=== PATIENT | female | born 1965 | race Caucasian/White ===

== ENCOUNTER 2019-09-13 11:26 | Emergency (ER) | payer BC ==
[2019-09-13] MEDS ORDERED: LORazepam 2 MG/ML SDV IM ONE (12:15)
[2019-09-13] MEDS ORDERED: Ketorolac 30 MG/ML SDV IM ONE (12:15)
--- NOTE | 2019-09-13 12:17 | EDM.PDOC ---
ED HPI GENERAL MEDICAL PROBLEM - General Chief Complaint: Chest Pain Stated Complaint: CHEAT PAINS Time Seen by Provider: 09/13/19 12:08 Source of Information: Reports: Patient, RN Notes Reviewed History Limitations: Reports: No Limitations - History of Present Illness INITIAL COMMENTS - FREE TEXT/NARRATIVE: 54-year-old female presents emergency department a complaint of chest pain for several weeks, the pain will come and go it is positional she has been doing a lot of sanding and varnishing at home pain is in her chest bilaterally will get short of breath and nauseated with the pain is intense no family history of cardiac issues, no history of tobacco use Chest Pain Score (Numeric/FACES): 9 - Related Data Allergies Allergy/AdvReac Type Severity Reaction Status Date / Time latex Allergy Rash Verified 09/13/19 11:41 Home Meds: Home Meds Cranberry Fruit Extract [Cranberry] 600 mg PO DAILY 09/13/19 [History] [id number] 180 mg PO DAILY 09/13/19 [History] Losartan [Cozaar] 25 mg PO DAILY 09/13/19 [History] Red Yeast Rice 600 mg PO DAILY 09/13/19 [History] Triamcinolone Acetonide [Nasacort] 1 sprays TOP DAILY 09/13/19 [History] Past Medical History HEENT History: Reports: Allergic Rhinitis Cardiovascular History: Reports: High Cholesterol, Hypertension Gastrointestinal History: Reports: GERD ULTRASONOGRAPHER History: Reports: Dysfunctional Uterine Bleeding, , Prolapsed Uterus Neurological History: Reports: Migraines - Infectious Disease History Infectious Disease History: Reports: Chicken Pox - Past Surgical History GI Surgical History: Reports: Colonoscopy, [place] Fundoplication Female Surgical History: Reports: Hysterectomy, Salpingo-Oophorectomy, Tubal Ligation Other Female Surgeries/Procedures: vaginal perssary Social & Family History - Tobacco Use Smoking Status *Q: Former Smoker Used Tobacco, but Quit: Yes Month/Year Tobacco Last Used: 12/02/2009 - Caffeine Use Caffeine Use: Reports: None - Recreational Drug Use Recreational Drug Use: No ED ROS GENERAL - Review of Systems Review Of Systems: See Below Constitutional: Reports: No Symptoms HEENT: Reports: No Symptoms Respiratory: Reports: Shortness of Breath Cardiovascular: Reports: Chest Pain GI/Abdominal: Reports: Nausea : Reports: No Symptoms Musculoskeletal: Reports: No Symptoms Skin: Reports: No Symptoms Neurological: Reports: No Symptoms Psychiatric: Reports: Anxiety ED EXAM, GENERAL - Physical Exam Exam: See Below Exam Limited By: No Limitations General Appearance: Alert, WD/WN, No Apparent Distress Head: Atraumatic, Normocephalic Neck: Normal Inspection, Supple, Non-Tender, Full Range of Motion Respiratory/Chest: No Respiratory Distress, Lungs Clear, Normal Breath Sounds, No Accessory Muscle Use, Chest Non-Tender Cardiovascular: Regular Rate, Rhythm, No Murmur GI/Abdominal: Soft, Non-Tender Course - Vital Signs Last Recorded V/S: Last Vital Signs Temp 97.8 F 09/13/19 11:51 Pulse 107 H 09/13/19 11:51 Resp 22 H 09/13/19 11:51 BP 161/105 H 09/13/19 11:51 Pulse Ox 95 09/13/19 11:51 - Orders/Labs/Meds Orders: Active Orders 24 hr Category Date Time Status Cardiac Monitoring [RC] .As Directed Care 09/13/19 12:14 Active EKG Documentation Completion [RC] ASDIRECTED Care 09/13/19 12:15 Active EKG 12 Lead [EK] Stat Ther 09/13/19 12:14 Ordered Labs: Laboratory Tests 09/13/19 09/13/19 09/13/19 Range/Units 12:26 12:26 12:26 WBC 5.7 (4.5-11.0) K/uL RBC 4.28 (3.30-5.50) M/uL Hgb 13.1 (12.0-15.0) g/dL Hct 39.8 (36.0-48.0) % MCV 93 (80-98) fL MCH 31 (27-31) pg MCHC 33 (32-36) % Plt Count 212 (150-400) K/uL Neut % (Auto) 60 (36-66) % Lymph % (Auto) 31 (24-44) % [place] % (Auto) 8 H (2-6) % Eos % (Auto) 2 (2-4) % Baso % (Auto) 0 (0-1) % D-Dimer, Quantitative 334 (0.0-400.0) ng/mL Sodium 137 L (140-148) mmol/L Potassium 3.8 (3.6-5.2) mmol/L Chloride 102 (100-108) mmol/L Carbon Dioxide 27 (21-32) mmol/L Anion Gap 11.8 (5.0-14.0) mmol/L BUN 18 (7-18) mg/dL Creatinine 0.7 (0.6-1.0) mg/dL Est Cr Clr Drug Dosing 80.26 mL/min Estimated GFR (MDRD) > 60 (>60) Glucose 93 (74-106) mg/dL Calcium 9.1 (8.5-10.1) mg/dL Total Bilirubin 0.3 (0.2-1.0) mg/dL AST 23 (15-37) U/L ALT 28 (12-78) U/L Alkaline Phosphatase 116 (46-116) U/L Troponin I < 0.017 (0.000-0.056) ng/mL Total Protein 7.9 (6.4-8.2) g/dL Albumin 4.0 (3.4-5.0) g/dL Globulin 3.9 H (2.3-3.5) g/dL Albumin/Globulin Ratio 1.0 L (1.2-2.2) Meds: Medications Discontinued Medications Generic Name Dose Route Start Last Admin Trade Name Freq PRN Reason Stop Dose Admin Ketorolac Tromethamine 30 mg 09/13/19 12:15 09/13/19 12:29 Toradol IM 09/13/19 12:16 30 mg ONETIME ONE Administration Lorazepam 1 mg 09/13/19 12:15 09/13/19 12:30 Ativan IM 09/13/19 12:16 1 mg ONETIME ONE Administration Departure - Departure Time of Disposition: 13:30 Disposition: Home, Self-Care 01 Condition: Fair Clinical Impression: Chest wall pain Referrals: Radha Colindres PA [Primary Care Provider] - Forms: ED Department Discharge Additional Instructions: Continue to use anti-inflammatories such as Motrin or Tylenol as needed for pain control, please followup with your primary care provider in 3-5 days if not better, please call return to the emergency department with worsening of symptoms. Sepsis Event Note - Evaluation Sepsis Screening Result: No Definite Risk - Focused Exam Vital Signs: Vital Signs Temp Pulse Resp BP Pulse Ox 09/13/19 11:51 97.8 F 107 H 22 H 161/105 H 95 09/13/19 11:44 97.8 F 107 H 22 H 161/105 H 95 Date Exam was Performed: 09/13/19 Time Exam was Performed: 13:29 - My Orders Last 24 Hours: My Active Orders 09/13/19 12:14 Cardiac Monitoring [RC] .As Directed EKG 12 Lead [EK] Stat 09/13/19 12:15 EKG Documentation Completion [RC] ASDIRECTED - Assessment/Plan Last 24 Hours: My Active Orders 09/13/19 12:14 Cardiac Monitoring [RC] .As Directed EKG 12 Lead [EK] Stat 09/13/19 12:15 EKG Documentation Completion [RC] ASDIRECTED Plan: Assessment Acuity = acute Site and laterality = muscle skeletal chest pain Etiology = secondary to overuse injury Manifestations = none Location of injury = Home Lab values = CBC, CMP, troponin, d-dimer, chest x-ray, EKG all within normal limits Plan Recommend continue using anti-inflammatories follow-up primary care 3 to 5 days if not better This note was dictated using [employer] voice recognition software please call with any questions on syntax or grammar.
--- NOTE | 2019-09-13 13:20 | CRLCR ---
INDICATION: CHEST PAIN TECHNIQUE: Chest 2 views. COMPARISON: None. FINDINGS: Cardiovascular and mediastinum: Heart size and vasculature are normal in caliber and appearance. Mediastinum is within normal limits. Lungs and pleural spaces: Lungs are clear. No sign of infiltrate or mass. No sign of pleural effusion. No pneumothorax. Bones and soft tissues: No significant findings. IMPRESSION: Unremarkable chest. Dictated by: Joel Rhodes MD @ 09/13/2019 13:19:41 (Electronically Signed)
== END 2019-09-13 14:09 | disposition home or self-care (01) ==
LOC: JP.ED 11:26
DX: R07.89 Other chest pain (principal); I10 Essential (primary) hypertension; Z91.040 Latex allergy status; Z79.899 Other long term (current) drug therapy; Z87.891 Personal history of nicotine dependence
CPT/HCPCS: 36415; 71046; 80053; 84484; 85025; 85379; 93005; 96372; 99285; J1885; J2060